=== PATIENT | male | born 1970 | race Caucasian/White ===

== ENCOUNTER → 2017-03-28 09:04 | Outpatient (CLI) | payer OTHER | END | disposition home or self-care (01) | LOC: D.US 09:04 | DX: I10 Essential (primary) hypertension (principal) ==

== ENCOUNTER → 2017-04-28 08:38 | Outpatient (CLI) | payer OTHER | END | disposition home or self-care (01) | LOC: D.ECHO 04-26 09:00 | DX: Z13.9 Encounter for screening, unspecified (principal) ==